=== PATIENT | male | born 1960 | race Two or more races ===

== ENCOUNTER 2020-03-16 13:15 | Emergency (ER) | payer MEDICAID ==
[~2020-03-16] VITALS: Ht 165.1 cm; Wt 83.9 kg
[2020-03-16 14:18] LABS: APPEARANCE,URINE CLEAR; BILIRUBIN, URINE NEGATIVE (NEGATIVE); COLOR,URINE PALE YELLOW; GLUCOSE, URINE (UA) NEGATIVE (NEGATIVE); KETONES,URINE NEGATIVE (NEGATIVE); LEUKOCYTE ESTERASE ,URINE NEGATIVE (NEGATIVE); NITRITE,URINE NEGATIVE (NEGATIVE); PH,URINE 8 (4.5-8.0); PROTEIN,URINE NEGATIVE (NEGATIVE); UROBILINOGEN,URINE NORMAL MG/DL (0.0-1.0)
[2020-03-16 14:20] LABS: BASOPHILS % (AUTO) 1.5 % (0.0-2.0); EOSINOPHILS % (AUTO) 2.1 % (0.0-3.0); HEMATOCRIT 48.4 % (42.0-52.0); LYMPHOCYTES % (AUTO) 27.7 % (20.0-45.0); MEAN CORPUSCULAR VOLUME 92 FL (80-99); MONOCYTES % (AUTO) 8.7 % (1.0-10.0); PLATELET COUNT 328 K/UL (150-450); RED BLOOD COUNT 5.27 M/UL (4.70-6.10); RED CELL DISTRIBUTION WIDTH 13.4 % (11.6-14.8); WHITE BLOOD COUNT 6.5 K/UL (4.8-10.8)
[2020-03-16 14:25] LABS: ALANINE AMINOTRANSFERASE 45 U/L (12-78); ALBUMIN 3.9 G/DL (3.4-5.0); ALBUMIN/GLOBULIN RATIO 1.1 (1.0-2.7); ALKALINE PHOSPHATASE 110 U/L (46-116); ASPARTATE AMINO TRANSFERASE 28 U/L (15-37); BILIRUBIN,TOTAL 0.4 MG/DL (0.2-1.0); BLOOD UREA NITROGEN 7 mg/dL (7-18); CALCIUM 9.1 MG/DL (8.5-10.1); CARBON DIOXIDE 28 MMOL/L (21-32); CREATININE 0.7 MG/DL (0.55-1.30)
[2020-03-16 14:30] LABS: CHLORIDE 95 MMOL/L (98-107); SODIUM 129 MMOL/L (136-145)
--- NOTE | 2020-03-16 15:38 | Diagnostic Imaging Report ---
EXAM: XR Abdomen, 2 Views CLINICAL HISTORY: PAIN TECHNIQUE: Frontal view of the abdomen/pelvis with upright view of the abdomen. COMPARISON: No relevant prior studies available. FINDINGS: Lower thorax: The lung bases appear clear. Intraperitoneal space: No evidence of free air. Gastrointestinal tract: Diffuse colonic fecal retention, suggesting constipation. No abnormal distention of small bowel loops. No small bowel air-fluid levels identified. No evidence of pneumatosis intestinalis. Organs: Surgical clips in the right upper abdominal quadrant suggest prior cholecystectomy. The renal shadows are obscured by bowel gas. No abnormal calcifications identified. Bones/joints: Degenerative changes throughout the visualized spine. IMPRESSION: Diffuse colonic fecal retention, suggesting constipation.
[2020-03-16] MEDS ORDERED: Magnesium Citrate Liq Btl ORAL ONE (15:45)
[2020-03-16] MEDS ORDERED: Mylanta II UD 30ml ORAL ONE (15:45)
[2020-03-16] MEDS ORDERED: Lidocaine 2% Visc 15ml soln ORAL ONE (15:45)
--- NOTE | 2020-03-16 15:56 | Emergency Room Report ---
History of Present Illness General Chief Complaint: Abdominal Pain Source: Patient Present Illness HPI 59 YO male presents to the ED c/o abdominal discomfort 7/10 and constipation x 3 years. pt. reports he recently was seen by a colorectal specialist and he left the office upset because he was under the impression he was going to have a colonic performed. Pt. presents to the ED with the hopes of receiving a colonic here. Pt. denies blood in the stool. He reports recent CT showed heavy stool. Pt. is worried because he this there is "old stool stuck inside of him for 3 years". Pt. denies nausea or vomiting. Pt. has hx of prostatitis and reports ever since having to take oral antibiotics for that issue he has had constipation ever since. Pt. reports he also has been having epigastric pain intermittently which is exacerbated with eating. Pt. Denies black tarry stools. Pt. denies personal or familial hx of cancer. He denies night sweats. He denies fevers or chills. He denies hematuria, dysuria, or urinary frequency. He denies abdominal tenderness. He has hx of cholecystectomy Allergies: Coded Allergies: No Known Allergies (Unverified , 03/16/20) COVID-19 Screening Contact w/high risk pt: No Experienced COVID-19 symptoms?: No COVID-19 Testing performed ASSISTANT ATHLETIC TRAINER: No Patient History Past Medical History: see triage record Past Surgical History: none Pertinent Family History: none Reviewed Nursing Documentation: PMH: Agreed; PSxH: Agreed Nursing Documentation-PMH Past Medical History: No History, Except For Hx Gastrointestinal Problems: Yes - gastritis History Of Psychiatric Problem: Yes - etoh abuse Review of Systems All Other Systems: negative except mentioned in HPI Physical Exam Vital Signs Date Time Temp Pulse Resp B/P (MAP) Pulse Ox O2 Delivery O2 Flow Rate FiO2 03/16/20 13:12 99.0 68 19 156/78 (104) 99 Room Air Sp02 EP Interpretation: reviewed, normal General Appearance: no apparent distress, alert, GCS 15, non-toxic Head: normocephalic, atraumatic Eyes: bilateral eye normal inspection, bilateral eye PERRL ENT: hearing grossly normal, normal voice Neck: full range of motion Respiratory: chest non-tender, lungs clear, normal breath sounds, no respiratory distress, no wheezing, speaking full sentences Cardiovascular #1: regular rate, rhythm Gastrointestinal: normal bowel sounds, non tender, soft, no peritonitis, non- distended, no guarding, other - surgical scars- laproscopic Musculoskeletal: normal range of motion, gait/station normal, non-tender Neurologic: alert, motor strength/tone normal, oriented x3, sensory intact, responsive, speech normal Psychiatric: judgement/insight normal, other - Pt. very talkative and worried about constipation and having retained stool x 3 years. Skin: no rash, normal color Medical Decision Making PA Attestation Dr. Lipscomb is my supervising Physician whom patient management has been discussed with. Diagnostic Impression: Primary Impression: Abdominal pain Qualified Codes: R10.13 - Epigastric pain Additional Impression: Constipation Qualified Codes: K59.04 - Chronic idiopathic constipation ER Course 59 YO male presents to the ED c/o abdominal discomfort 09/22 and constipation x 3 years. pt. reports he recently was seen by a colorectal specialist and he left the office upset because he was under the impression he was going to have a colonic performed. Pt. presents to the ED with the hopes of receiving a colonic here. Pt. denies blood in the stool. He reports recent CT showed heavy stool. Pt. is worried because he this there is "old stool stuck inside of him for 3 years". Pt. denies nausea or vomiting. Pt. has hx of prostatitis and reports ever since having to take oral antibiotics for that issue he has had constipation ever since. Pt. reports he also has been having epigastric pain intermittently which is exacerbated with eating. Pt. Denies black tarry stools. Pt. denies personal or familial hx of cancer. He denies night sweats. He denies fevers or chills. He denies hematuria, dysuria, or urinary frequency. He denies abdominal tenderness. He has hx of cholecystectomy Ddx considered but are not limited to constipation , appendicitis, SBO, Cancer, Vital signs: are WNL, pt. is afebrile. H&PE are most consistent with constipation. bowl sounds are normo active. Physical exam does not suggest acute abdomen at this time. Patient is nontoxic in appearance and in no acute distress ORDERS: -CBC: WNL -CMP: WNL -Lipase: WNL - UA: WNL Abdominal KUB ED INTERVENTIONS: Gi cocktail, pt. states pain has subsided after administration of GI cocktail. - D/ Wpt. his lab results and imaging results. -I do not identify an emergent condition at this time. With current presentation, pt. is stable for close outpatient follow up and conservative treatment. D/w pt. to return promptly to ED with worsening or new symptoms.- Pt. verbalizes' understanding and agreement with proposed treatment plan. DISCHARGE: At this time pt. is stable for d/c to home. Will provide printed patient care instructions, and any necessary prescriptions. Care plan and follow up instructions have been discussed with the patient prior to discharge. Labs Test 03/16/20 13:50 White Blood Count 6.5 K/UL (4.8-10.8) Red Blood Count 5.27 M/UL (4.70-6.10) Hemoglobin 16.0 G/DL (14.2-18.0) Hematocrit 48.4 % (42.0-52.0) Mean Corpuscular Volume 92 FL (80-99) Mean Corpuscular Hemoglobin 30.4 PG (27.0-31.0) Mean Corpuscular Hemoglobin Concent 33.1 G/DL (32.0-36.0) Red Cell Distribution Width 13.4 % (11.6-14.8) Platelet Count 328 K/UL (150-450) Mean Platelet Volume 6.9 FL (6.5-10.1) Neutrophils (%) (Auto) 60.0 % (45.0-75.0) Lymphocytes (%) (Auto) 27.7 % (20.0-45.0) Monocytes (%) (Auto) 8.7 % (1.0-10.0) Eosinophils (%) (Auto) 2.1 % (0.0-3.0) Basophils (%) (Auto) 1.5 % (0.0-2.0) Urine Color Pale yellow Urine Appearance Clear Urine pH 8 (4.5-8.0) Urine Specific [place] 1.010 (1.005-1.035) Urine Protein Negative (NEGATIVE) Urine Glucose (UA) Negative (NEGATIVE) Urine Ketones Negative (NEGATIVE) Urine Blood Negative (NEGATIVE) Urine Nitrite Negative (NEGATIVE) Urine Bilirubin Negative (NEGATIVE) Urine Urobilinogen Normal MG/DL (0.0-1.0) Urine Leukocyte Esterase Negative (NEGATIVE) Sodium Level 129 MMOL/L (136-145) Potassium Level 4.0 MMOL/L (3.5-5.1) Chloride Level 95 MMOL/L (98-107) Carbon Dioxide Level 28 MMOL/L (21-32) Blood Urea Nitrogen 7 mg/dL (7-18) Creatinine 0.7 MG/DL (0.55-1.30) Estimat Glomerular Filtration Rate > 60 mL/min (>60) Glucose Level 110 MG/DL (74-106) Calcium Level 9.1 MG/DL (8.5-10.1) Total Bilirubin 0.4 MG/DL (0.2-1.0) Aspartate Amino Transf (AST/SGOT) 28 U/L (15-37) Alanine Aminotransferase (ALT/SGPT) 45 U/L (12-78) Alkaline Phosphatase 110 U/L (46-116) Total Protein 7.5 G/DL (6.4-8.2) Albumin 3.9 G/DL (3.4-5.0) Globulin 3.6 g/dL Albumin/Globulin Ratio 1.1 (1.0-2.7) Lipase 138 U/L (73-393) Other X-Ray Diagnostic Results Other X-Ray Diagnostic Results : X-Ray ordered: Abdominal KUB # of Views/Limited Vs Complete: 1 View Indication: Pain EP Interpretation: Yes PA Xray: Interpretation reviewed, by supervising MD, and agrees with findings. Interpretation: nonspecific bowel gas, other - moderate stool in the rectal vault Impression: No acute disease Electronically Signed by: Kandy Hussein PA-C Last Vital Signs Date Time Temp Pulse Resp B/P (MAP) Pulse Ox O2 Delivery O2 Flow Rate FiO2 03/16/20 13:22 68 19 Room Air 03/16/20 13:12 99.0 156/78 (104) 99 Status: improved Disposition: HOME, SELF-CARE Condition: Stable Scripts Docusate Sodium* (COLACE*) 100 Mg Capsule 100 MG ORAL THREE TIMES A DAY, #30 CAP Prov: Kandy Hussein 03/16/20 Mag Hydrox/Aluminum Hyd/Simeth (Mylanta Maximum Strength Liq) 355 Ml Oral.susp 30 ML PO BID, #355 ML Prov: Kandy Hussein 03/16/20 Famotidine* (Pepcid 20mg tablet*) 20 Mg Tablet 20 MG ORAL TWICE A DAY for Gerd for 10 Days, #20 TAB 0 Refills Prov: Kandy Hussein 03/16/20 Referrals: Leroy AGEE,REFERRING (PCP) [facility]oy Agee [facility]. [facility] Patient Instructions: Abdominal Pain, Adult, Constipation, Adult, [id number], Peptic Ulcer, [id number] Additional Instructions: Take medications as directed. FOLLOW UP WITH BRUSH TRIMMING MACHINE SETTER Follow up with a Primary Care Provider in 3-5 days, even if your symptoms have resolved. Return sooner to ED if new symptoms occur, or current symptoms become worse. - Please note that this Emergency Department Report was dictated using [employer] consultant technology software, occasionally this can lead to erroneous entry secondary to interpretation by the dictation equipment. Kandy Hussein Mar 16, 2020 15:56
[2020-03-16] MEDS ORDERED: COLACE100 MG ORAL (16:05)
[2020-03-16] MEDS ORDERED: FAMOTIDINE20 MG ORAL (16:05)
[2020-03-16] MEDS ORDERED: MYLANTA MAXIMU355 ML PO (16:05)
[2020-03-16 16:38] VITALS: BP 156/78
== END 2020-03-16 16:40 | disposition home or self-care (01) ==
LOC: EDBD 13:15 → EMR 13:55
DX: K59.04 Chronic idiopathic constipation (principal); R10.13 Epigastric pain; Z90.49 Acquired absence of other specified parts of digestive tract
CPT/HCPCS: 36415; 74018; 80053; 81003; 83690; 85025; Z7502; 99284